=== PATIENT | female | born 1980 | race American Indian/Alaskan Native ===

== ENCOUNTER 2020-04-20 23:45 | Emergency (ER) | payer OTHER ==
--- NOTE | 2020-04-21 00:31 | Emergency Department Report ---
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 [place] trying her with the cardio causing her to fall onto the concrete striking the right side of her body) Place Fall Occurred: home Loss of Consciousness: none Prolonged Down Time?: no Symptoms Prior to Fall: none Location - Extremities: Right: Elbow Severity: moderate Quality: dull Context: tripped/slipped - Related Data Previous Rx's Medication Instructions Recorded Last Taken Type Acetaminophen/Codeine [Tylenol 1 tab PO Q6H PRN #14 tab 04/21/20 Unknown Rx /Codeine # 3 tab] Allergies Allergy/AdvReac Type Severity Reaction Status Date / Time Sulfa (Sulfonamide Allergy Hives Verified 04/21/20 00:26 Antibiotics) ED Review of Systems ROS: Stated complaint: RT ARM INJURY Other details as noted in HPI Comment: All other systems reviewed and negative ED Past Medical Hx - Past Medical History Previous Medical History?: No - Surgical History Past Surgical History?: No - Social History Smoking Status: Never Smoker Substance Use Type: None - Medications Home Medications: Home Medications Medication Instructions Recorded Confirmed Last Taken Type Acetaminophen/Codeine [Tylenol 1 tab PO Q6H PRN #14 tab 04/21/20 Unknown Rx /Codeine # 3 tab] ED Physical Exam - General Limitations: No Limitations General appearance: alert, in no apparent distress - Head Head exam: Present: atraumatic, normocephalic - Eye Eye exam: Present: normal appearance, PERRL Pupils: Present: normal accommodation - ENT ENT exam: Present: normal exam, mucous membranes moist, TM's normal bilaterally - Neck Neck exam: Present: normal inspection - Respiratory Respiratory exam: Present: normal lung sounds bilaterally. Absent: respiratory distress - Cardiovascular Cardiovascular Exam: Present: regular rate, normal rhythm. Absent: systolic murmur, diastolic murmur, rubs, gallop - GI/Abdominal GI/Abdominal exam: Present: soft, normal bowel sounds - Extremities Exam Extremities exam: Present: normal inspection - Back Exam Back exam: Present: normal inspection - Neurological Exam Neurological exam: Present: alert, oriented X3 - Psychiatric Psychiatric exam: Present: normal affect, normal mood - Skin Skin exam: Present: warm, dry, intact, normal color. Absent: rash ED Course Vital Signs 04/21/20 00:12 Temperature 98.1 F Pulse Rate 82 Respiratory 18 Rate Blood Pressure 169/101 O2 Sat by Pulse 99 Oximetry ED Medical Decision Making - Radiology Data Radiology results: report reviewed [facility] [address] [place] [address] XRay Report Signed Patient: BRANDT GEIGER MR#: [id number] : 1980 Acct:[id number] Age/Sex: 39 / F ADM Date: 04/20/20 Loc: ED Attending Dr: Ordering Physician: BECKY BENITEZ Date of Service: 04/21/20 Procedure(s): XR forearm RT Accession Number(s): [id number] cc: BECKY BENITEZ Fluoro Time In Minutes: XR forearm RT INDICATION / CLINICAL INFORMATION: fall elbow and wrist pain COMPARISON: None available. FINDINGS: BONES / JOINT(S): There is an acute nondisplaced intra-articular fracture of the radial head. Joint effusion is present within the right elbow. SOFT TISSUES: No significant abnormality. ADDITIONAL FINDINGS: None. IMPRESSION: Acute nondisplaced intra-articular right radial head fracture Signer Name: Bhupendra Mehta MD Signed: 04/21/2020 12:41 AM Workstation Name: [id number] Transcribed By: MYNOR Dictated By: BHUPENDRA MEHTA MD Electronically Authenticated By: BHUPENDRA MEHTA MD Signed Date/Time: 04/21/2040 DD/ TD/TT: - Medical Decision Making 39-year-old Martiniquais female status post fall landing on concrete on her right elbow and resulted in a radial head fracture. Plan is to splint sling and have her follow-up with orthopedic for definitive treatment. And pain control Critical care attestation.: If time is entered above; I have spent that time in minutes in the direct care of this critically ill patient, excluding procedure time. ED Disposition Clinical Impression: Radial head fracture Disposition: DC-01 TO HOME OR SELFCARE Is pt being admited?: No Does the pt Need Aspirin: No Condition: Stable Instructions: Cast or Splint Care, Adult, [id number], Radial Head Fracture Prescriptions: Acetaminophen/Codeine [Tylenol /Codeine # 3 tab] 1 tab PO Q6H PRN #14 tab PRN Reason: pain Referrals: [facility] [Provider Group] - 3-5 Days NAEEM ELIZABETH MD [Staff Physician] - 3-5 Days LISBETH CHANG MD [Staff Physician] - 3-5 Days (Please follow-up with his orthopedic physician for definitive treatment of your arm fracture)
--- NOTE | 2020-04-21 00:46 | XRay Report ---
XR forearm RT INDICATION / CLINICAL INFORMATION: fall elbow and wrist pain COMPARISON: None available. FINDINGS: BONES / JOINT(S): There is an acute nondisplaced intra-articular fracture of the radial head. Joint e ffusion is present within the right elbow. SOFT TISSUES: No significant abnormality. ADDITIONAL FINDINGS: None. IMPRESSION: Acute nondisplaced intra-articular right radial head fracture Signer Name: Luís Mehta MD Signed: 04/21/2020 12:41 AM Workstation Name: [id number]
[2020-04-21 04:32] VITALS: BP 142/78
== END 2020-04-21 04:32 | disposition home or self-care (01) ==
LOC: ED 23:45
DX: S52.124A Nondisplaced fracture of head of right radius, initial encounter for closed fracture (principal); Z79.899 Other long term (current) drug therapy; Z88.2 Allergy status to sulfonamides; W18.30XA Fall on same level, unspecified, initial encounter; Y93.89 Activity, other specified; Y92.009 Unspecified place in unspecified non-institutional (private) residence as the place of occurrence of the external cause; Y99.8 Other external cause status